=== PATIENT | female | born 1970 | race Caucasian/White ===

== ENCOUNTER 2017-02-06 08:04 | Day surgery (SDC) | payer OTHER ==
[2017-02-04 15:09] VITALS: BMI 38.2
--- NOTE | 2017-02-05 16:38 | P.HPOB ---
History of Present Illness H&P Date: 02/05/17 Chief Complaint: post menopausal bleeding 46 year old presents for D&C hysteroscopy for postmenopausal bleeding. Review of Systems All systems: negative Constitutional: Denies chills, Denies fever Eyes: denies blurred vision, denies pain Ears, nose, mouth and throat: Denies headache, Denies sore throat Cardiovascular: Denies chest pain, Denies shortness of breath Respiratory: Denies cough Gastrointestinal: Denies abdominal pain, Denies diarrhea, Denies nausea, Denies vomiting Genitourinary: Denies dysuria, Denies hematuria Musculoskeletal: Denies myalgias Integumentary: Denies pruritus, Denies rash Neurological: Denies numbness, Denies weakness Psychiatric: Denies anxiety, Denies depression Endocrine: Denies fatigue, Denies weight change Past Medical History Past Medical History: GERD/Reflux, Osteoarthritis (OA), Sleep Apnea/CPAP/BIPAP Additional Past Medical History / Comment(s): hx. migraines, no CPAP, abnormal vaginal bleeding, recent laryngitis-now resolved History of Any Multi-Drug Resistant Organisms: None Reported Past Surgical History: Section, Cholecystectomy, Orthopedic Surgery Additional Past Surgical History / Comment(s): ORIF left hand Past Anesthesia/Blood Transfusion Reactions: Previous Problems w/ Anesthesia Additional Past Anesthesia/Blood Transfusion Reaction / Comment(s): severe itching post-op after c/s Past Psychological History: No Psychological Hx Reported Smoking Status: Current every day smoker Past Alcohol Use History: None Reported Additional Past Alcohol Use History / Comment(s): 1/2ppd since age of 15 Past Drug Use History: None Reported - Past Family History Mother Family Medical History: Cancer Medications and Allergies Home Medications Medication Instructions Recorded Confirmed Type Ibuprofen [Motrin] 800 mg PO Q8HR PRN 01/10/17 02/04/17 History Loratadine [Claritin] 10 mg PO DAILY 01/10/17 02/04/17 History Ranitidine HCl [Zantac] 150 mg PO BID 01/10/17 02/04/17 History Simvastatin [Zocor] 40 mg PO HS 01/10/17 02/04/17 History Allergies Allergy/AdvReac Type Severity Reaction Status Date / Time acetaminophen Allergy Nausea Verified 02/04/17 15:04 [From Tylenol-Codeine #3] codeine Allergy "loopy" Verified 02/04/17 15:04 Exam Osteopathic Statement: *. No significant issues noted on an osteopathic structural exam other than those noted in the History and Physical/Consult. HEart: RRR Lungs: CTAB ABdomen: soft, nontender Extremeties: neg homans Assessment and Plan (1) Postmenopausal bleeding Status: Acute Plan: 1. D&C hysteroscopy
[~2017-02-06 08:04] MED LIST: DEXAMETHASONE SOD PHOSPHATE 10 MG/ML 1 ML VIAL IV ONE; HYDROmorphone 1 MG/ML 1 ML SYRINGE IVP PRN; LACTATED RINGERS 1,000 ML IV SCH; MIDAZOLAM 2 MG/2 ML VIAL IV PRN; ONDANSETRON 4 MG/2 ML VIAL IVP ONE; Pre Op ABX Message 1 EACH MISC MISCELLANE ONE; SCOPOLAMINE 1.5MG/72HR PATCH TRANSDERM ONE
[2017-02-06] MEDS ORDERED: LIDOCAINE 1% 20 ML VIAL (10MG/ML) FOR IV START INTRADERMA ONE (08:31)
[2017-02-06] MEDS ORDERED: PROPOFOL 10 MG/ML 20 ML VIAL IV ONE (09:03)
[2017-02-06] MEDS ORDERED: SUCCINYLCHOLINE CHLORIDE 100 MG/5 ML SYR IV ONE (09:03)
[2017-02-06] MEDS ORDERED: LIDOCAINE 1% INJ 10MG/ML (20 ML MDV) ONE (09:03)
--- NOTE | 2017-02-06 09:27 | P.OP ---
Date of Procedure: 02/06/17 Preoperative Diagnosis: 1. Postmenopausal bleeding Postoperative Diagnosis: 1. Postmenopausal bleeding Procedure(s) Performed: D&C, hysteroscopy Anesthesia: DASHA Surgeon: Beverly Zelaya Estimated Blood Loss (ml): 5 IV fluids (ml): 300 Urine output (ml): 50 Pathology: other Condition: stable Disposition: PACU Description of Procedure: PAtient was taken to the operating room where general anesthesia was obtained without difficulty. She was prepped and draped in the normal sterile fashion, legs placed in the candy cane stirrups. Bladder was drained of all urine. Weighted speculum placed in the vagina and the anterior lip of the cervix was grasped with a single toothed tenaculum. The uterus was sounded to 9cm. The cervix was dilated to the number 8 Hegar dilator. Hysteroscopy was performed. Both ostia visualized, there was a polyp seen on the anterior portion of the endometrium. Sharp currett was gently used to obtain endometrial currettings and then a polyp forcep was introduced and the polyp was removed. All instruments removed from vagina. Excellent hemostasis seen. Pt tolerated procedure well. Sponge and instrument counts correct x2. She was taken to recovery in stable condition.
[2017-02-06 09:39] VITALS: TEMP 97
[2017-02-06 09:52] VITALS: RESP 18
[2017-02-06 10:59] VITALS: BP 143/65; PULSE 85
== END 2017-02-06 11:02 | disposition home or self-care (01) ==
LOC: OR 08:04
PROVIDERS: ATTEND Obstetrics & Gynecology
DX: N84.0 Polyp of corpus uteri (principal); N95.0 Postmenopausal bleeding; K21.9 Gastro-esophageal reflux disease without esophagitis; M19.90 Unspecified osteoarthritis, unspecified site; E78.5 Hyperlipidemia, unspecified; G47.33 Obstructive sleep apnea (adult) (pediatric); F17.200 Nicotine dependence, unspecified, uncomplicated; Z88.5 Allergy status to narcotic agent; Z88.8 Allergy status to other drugs, medicaments and biological substances; Z79.899 Other long term (current) drug therapy
CPT/HCPCS: 58558; 81025; 88305; J1100; J2405; J2001; J0330; J2704

== ENCOUNTER 2017-03-18 10:31 | Emergency (ER) | payer OTHER ==
[2017-03-18] MEDS ORDERED: DIPH,PERTUS(ACELL)TETVAC-LF 0.5 ML VIAL IM ONE (11:03)
--- NOTE | 2017-03-18 11:06 | ED ---
Wound/Laceration HPI - General Chief Complaint: Wound/Laceration Stated Complaint: laceration Time Seen by Provider: 03/18/17 10:52 Source: patient, RN notes reviewed Mode of arrival: ambulatory Limitations: physical limitation - History of Present Illness Initial Comments: 46 yo female presents to the Er with cc of right hand laceration. Patient states that she was doing dishes today and a glass broke and cut her hand. Patient states since then she had some bleeding. Hand. Patient states she went to [facility] and she was sent here. Patient states she has full range motion hand. There is no pain. Patient states that she is not up-to-date on her tetanus. Patient states she is not currently having any other symptoms at this time. Patient denies any recent fever, chills, shortness of breath, chest pain, back pain, abdominal pain, nausea vomiting, numbness or tingling, dysuria or hematuria, constipation or diarrhea, headaches or visual changes, or any other current symptoms. - Related Data Home Medications Medication Instructions Recorded Confirmed Ibuprofen [Motrin] 800 mg PO Q8HR PRN 01/10/17 02/06/17 Loratadine [Claritin] 10 mg PO DAILY 01/10/17 02/06/17 Ranitidine HCl [Zantac] 150 mg PO BID 01/10/17 02/06/17 Simvastatin [Zocor] 40 mg PO HS 01/10/17 02/06/17 Allergies Allergy/AdvReac Type Severity Reaction Status Date / Time acetaminophen Allergy Nausea Verified 02/06/17 08:18 [From Tylenol-Codeine #3] codeine Allergy "loopy" Verified 02/06/17 08:18 Review of Systems ROS Statement: Those systems with pertinent positive or pertinent negative responses have been documented in the HPI. ROS Other: All systems not noted in ROS Statement are negative. Past Medical History Past Medical History: GERD/Reflux, Osteoarthritis (OA), Sleep Apnea/CPAP/BIPAP Additional Past Medical History / Comment(s): hx. migraines, no CPAP, abnormal vaginal bleeding, History of Any Multi-Drug Resistant Organisms: None Reported Past Surgical History: Section, Cholecystectomy, Orthopedic Surgery Additional Past Surgical History / Comment(s): ORIF left hand Past Anesthesia/Blood Transfusion Reactions: Previous Problems w/ Anesthesia Additional Past Anesthesia/Blood Transfusion Reaction / Comment(s): severe itching post-op after c/s Past Psychological History: No Psychological Hx Reported Smoking Status: Current every day smoker Past Alcohol Use History: None Reported Additional Past Alcohol Use History / Comment(s): 1/2ppd since age of 15 Past Drug Use History: None Reported - Past Family History Father Family Medical History: Cancer Mother Family Medical History: Cancer General Exam - General Exam Comments Initial Comments: General: The patient is awake and alert, in no distress, and does not appear acutely ill. Neck: The neck is supple, there is no tenderness. Cardiovascular: There is a regular rate and rhythm. No murmur, rub or gallop is appreciated. Respiratory: Lungs are clear to auscultation, respirations are non-labored, breath sounds are equal. No wheezes, stridor, rales, or rhonchi. Musculoskeletal: Sensation intact with 2+ pulses at the pressure. Front portion of the right wrist and right hand. Patient appears to have a 1 cm x 2 cm abrasion with associated mild skin avulsion to the first knuckle. There is no weakness there is no deep tendon or tissue injury noted. Patient has full range of motion. Neurological: CN II-XII intact, There are no obvious motor or sensory deficits. Coordination appears grossly intact. Speech is normal. Skin: Skin is warm and dry and no rashes or lesions are noted. Psychiatric: Normal mood and affect. Limitations: physical limitation Course Vital Signs 03/18/17 10:34 Temperature 98.3 F Pulse Rate 98 Respiratory 18 Rate Blood Pressure 155/92 O2 Sat by Pulse 98 Oximetry Medical Decision Making - Medical Decision Making 46-year-old female presents with what appears to be a right hand abrasion with mild avulsion. This time there is no suturing needed. We did discuss care follow-up return parameters. We did discuss all the patient's questions. He stated they understood and they are agreeable with the plan. They will be discharged home. Disposition Clinical Impression: Abrasion of right hand Disposition: HOME SELF-CARE Condition: Stable Instructions: Abrasion (ED) Additional Instructions: Please use medication as discussed. Please follow up with family doctor if symptoms have not improved over the next two days. Please return to the emergency room if your symptoms increase or worsen or for any other concerns. Referrals: Brian Simmons DO [Primary Care Provider] - 1-2 days Time of Disposition: 11:05
[2017-03-18 11:48] VITALS: BP 146/92; PULSE 95; RESP 16; TEMP 97.8
== END 2017-03-18 11:46 | disposition home or self-care (01) ==
LOC: EC 10:31
DX: S61.401A Unspecified open wound of right hand, initial encounter (principal); K21.9 Gastro-esophageal reflux disease without esophagitis; F17.200 Nicotine dependence, unspecified, uncomplicated; Z23 Encounter for immunization; Z79.899 Other long term (current) drug therapy; Z88.5 Allergy status to narcotic agent; Z88.6 Allergy status to analgesic agent; W25.XXXA Contact with sharp glass, initial encounter; Y93.G1 Activity, food preparation and clean up
CPT/HCPCS: 90471; 90715; 99282

== ENCOUNTER → 2017-12-26 | Outpatient (CLI) | payer OTHER ==
--- NOTE | 2017-12-27 12:07 | MM ---
Reason for exam: screening (asymptomatic). Last mammogram was performed 2 years and 1 month ago. History: Patient is postmenopausal. Family history of breast cancer in maternal grandmother at age 80. Took hormonal contraceptives for 13 years beginning at age 15. Took progesterone beginning at age 46. Physical Findings: A clinical breast exam by your physician is recommended on an annual basis and results should be correlated with mammographic findings. MG Screening Mammo w CAD Bilateral CC and MLO view(s) were taken. Prior study comparison: November 17, 2015, bilateral MG screening mammo w CAD. April 30, 2013, bilateral digital screening mammo w/CAD. The breast tissue is heterogeneously dense. This may lower the sensitivity of mammography. No suspicious abnormality. No significant changes when compared with prior studies. ASSESSMENT: Negative, BI-RAD 1 RECOMMENDATION: Routine screening mammogram of both breasts in 1 year.
== END | disposition home or self-care (01) ==
LOC: RADMAMWWP 11:09
PROVIDERS: ATTEND Family Medicine
DX: Z12.31 Encounter for screening mammogram for malignant neoplasm of breast (principal)
CPT/HCPCS: 77067

== ENCOUNTER → 2019-04-02 | Outpatient (CLI) | payer OTHER ==
--- NOTE | 2019-04-02 10:24 | XR ---
EXAMINATION TYPE: XR chest 2V DATE OF EXAM: 04/02/2019 COMPARISON: None INDICATION: Nicotine dependence TECHNIQUE: Frontal and lateral views of the chest are obtained. FINDINGS: The heart size is normal. The pulmonary vasculature is normal. The lungs are clear. IMPRESSION: 1. No acute pulmonary process. 2. Consider assessment for low dose CT chest screening.
--- NOTE | 2019-04-03 13:29 | ECHOF ---
Referral Reason:R07.9 chest pain MEASUREMENTS -------- HEIGHT: 157.5 cm WEIGHT: 86.2 kg BP: 130/88 RVIDd: 2.9 cm (< 3.3) IVSd: 1.2 cm (0.6 - 1.1) LVIDd: 3.2 cm (3.9 - 5.3) LVPWd: 1.0 cm (0.6 - 1.1) IVSs: 1.4 cm LVIDs: 2.4 cm LVPWs: 1.4 cm LA Diam: 2.8 cm (2.7 - 3.8) LAESV Index (A-L): 18.12 ml/m Ao Diam: 2.4 cm (2.0 - 3.7) AV Cusp: 1.5 cm (1.5 - 2.6) MV EXCURSION: 11.540 mm (> 18.000) MV EF SLOPE: 35 mm/s (70 - 150) EPSS: 0.3 cm MV E Christian: 0.94 m/s MV DecT: 247 ms MV A Christian: 0.99 m/s MV E/A Ratio: 0.95 AV maxP.57 mmHg AV meanP.51 mmHg FINDINGS -------- Sinus rhythm. This was a technically good study. The left ventricular size is normal. There is borderline concentric left ventricular hypertrophy. Overall left ventricular systolic function is normal with, an EF between 60 - 65 %. The right ventricle is normal in size. Normal LA size by volume 22+/-6 ml/m2. The right atrium is normal in size. The atrial septal defect shunts from left to right. There is mild aortic valve sclerosis. Peak/mean gradient across the Aortic Valve is 17.57mmHg / 7.5 1mmHg. The tricuspid valve appears structurally normal. The pulmonic valve was not well visualized. The aortic root size is normal. Normal inferior vena cava with normal inspiratory collapse consistent with estimated right atrial pre ssure of 5 mmHg. There is no pericardial effusion. CONCLUSIONS -------- 1. Sinus rhythm. 2. This was a technically good study. 3. The left ventricular size is normal. 4. There is borderline concentric left ventricular hypertrophy. 5. Overall left ventricular systolic function is normal with, an EF between 60 - 65 %. 6. The right ventricle is normal in size. 7. Normal LA size by volume 22+/-6 ml/m2. 8. The right atrium is normal in size. 9. The atrial septal defect shunts from left to right. 10. There is mild aortic valve sclerosis. 11. Peak/mean gradient across the Aortic Valve is 17.57mmHg / 7.51mmHg. 12. The tricuspid valve appears structurally normal. 13. The pulmonic valve was not well visualized. 14. The aortic root size is normal. 15. Normal inferior vena cava with normal inspiratory collapse consistent with estimated right atrial pressure of 5 mmHg. 16. There is no pericardial effusion. CAN LINE EXAMINER: Jen Haynes RDCS
--- NOTE | 2019-04-03 14:30 | EST ---
EXERCISE STRESS DATE OF SERVICE: 04/02/2019 AGE: 48 SEX: Female HT: 62" WT: 190 pounds PROTOCOL: Winston STAGE: II DURATION OF EXERCISE: 4 minutes HEART RATE REST: 94 BLOOD PRESSURE REST: 130/86 MAXIMUM HEART RATE ACHIEVED: 115 MAXIMUM BLOOD PRESSURE: 147/86 85% MPHR: 145 100% MPHR: 171 METS: 5.9 INDICATIONS: Chest pain. CLINICAL INFORMATION: STRESS DATA: Pretesting physical examination showed a heart rate of 94, pressure 130/86 mmHg. Baseline EKG showed sinus mechanism. The patient exercised on the treadmill according to [place] protocol for a total of 4 minutes and achieved 5.9 METs. Max heart rate was 115 beats per minute, which is about 69% of maximum predicted heart rate. Maximum blood pressure was 147/86 mmHg. Clinically the patient did not have any symptoms of chest pain, but she developed shortness of breath and she could not continue exercising. CONCLUSION: 1. Normal EKG in response to exercise to the level of heart rate achieved, which is 69% of maximum predicted heart rate. 2. Overall nondiagnostic stress test due to the patient not achieving 85% of maximum predicted heart rate. MMODL / IJN: [id number] /
== END | disposition home or self-care (01) ==
LOC: RADNMMAIN 08:21
PROVIDERS: ATTEND Family Medicine
DX: R07.9 Chest pain, unspecified (principal); I51.7 Cardiomegaly; I35.8 Other nonrheumatic aortic valve disorders; F17.210 Nicotine dependence, cigarettes, uncomplicated; Z88.5 Allergy status to narcotic agent
CPT/HCPCS: 71046; 93017; 93306

== ENCOUNTER → 2019-11-25 | Outpatient (CLI) | payer OTHER ==
--- NOTE | 2019-11-26 09:03 | MM ---
Reason for exam: additional evaluation requested from abnormal screening. Last mammogram was performed less than 1 month ago. History: Patient is postmenopausal. Family history of breast cancer in maternal grandmother at age 80 and breast cancer in aunt. Took hormonal contraceptives for 13 years beginning at age 15. Took progesterone beginning at age 46. Physical Findings: Nurse did not find any significant physical abnormalities on exam. MG Work Up Mamm w CAD LT Spot compression CC, spot compression MLO, and ML view(s) were taken of the left breast. Prior study comparison: November 12, 2019, bilateral MG screening mammo w CAD. December 26, 2017, bilateral MG screening mammo w CAD. The breast tissue is heterogeneously dense. This may lower the sensitivity of mammography. Finding #1: There is a 4 mm equal density (isodense), round mass in the left breast. Finding #2: There are typically benign calcifications in the left breast. These results were verbally communicated with the patient and result sheet given to the patient on 11/25/19. ASSESSMENT: Incomplete: need additional imaging evaluation, BI-RAD 0 RECOMMENDATION: Ultrasound of the left breast.
--- NOTE | 2019-11-26 09:12 | USB ---
Reason for exam: additional evaluation requested from abnormal screening. History: Patient is postmenopausal. Family history of breast cancer in maternal grandmother at age 80 and breast cancer in aunt. Took hormonal contraceptives for 13 years beginning at age 15. Took progesterone beginning at age 46. US Breast Workup Limited LT Left limited breast ultrasound including focal area of concern, retroareolar and axilla demonstrates a 0.7 x 0.6 x 0.2cm cystic lesion at 1 o'clock. These results were verbally communicated with the patient and result sheet given to the patient on 11/25/19. ASSESSMENT: Probably benign, BI-RAD 3 RECOMMENDATION: Follow-up diagnostic mammogram and ultrasound of the left breast in 6 months.
== END | disposition home or self-care (01) ==
LOC: RADMAMWWP 14:06
PROVIDERS: ATTEND Family Medicine
DX: R92.8 Other abnormal and inconclusive findings on diagnostic imaging of breast (principal)
CPT/HCPCS: 77065

== ENCOUNTER → 2020-07-04 | Outpatient (CLI) | payer OTHER ==
--- NOTE | 2020-07-04 10:31 | MM ---
Reason for exam: follow-up at short interval from prior study. Last mammogram was performed 7 months ago. History: Patient is postmenopausal. Family history of breast cancer in maternal grandmother at age 80 and breast cancer in aunt. Took hormonal contraceptives for 13 years beginning at age 15. Took progesterone beginning at age 46. Physical Findings: Nurse did not find any significant physical abnormalities on exam. MG Diagnostic Mammo LT w CAD CC, MLO, and XCCL view(s) were taken of the left breast. Prior study comparison: November 25, 2019, left breast MG work up mamm w CAD LT. November 12, 2019, bilateral MG screening mammo w CAD. The breast tissue is heterogeneously dense. This may lower the sensitivity of mammography. Finding: There is a 4 mm equal density (isodense), circumscribed oval mass in the posterior position of the left breast, present previously, increased from 2mm, 11cm from the nipple. There is a chronic nodularity in the left breast. New finding since November 25, 2019 and November 12, 2019. These results were verbally communicated with the patient and result sheet given to the patient on 07/04/20. ASSESSMENT: Incomplete: need additional imaging evaluation, BI-RAD 0 RECOMMENDATION: Ultrasound of the left breast.
--- NOTE | 2020-07-04 10:33 | USB ---
Reason for exam: additional evaluation requested from abnormal screening. History: Patient is postmenopausal. Family history of breast cancer in maternal grandmother at age 80 and breast cancer in aunt. Took hormonal contraceptives for 13 years beginning at age 15. Took progesterone beginning at age 46. US Breast LT Left complete breast ultrasound includes all four quadrants, the retroareolar region and axilla. Finding demonstrates a 8 x 5 x 11mm oval, cystic lesion at 12 o'clock and a 8 x 2 x 5mm cystic lesion at 1 o'clock. These results were verbally communicated with the patient and result sheet given to the patient on 07/04/20. ASSESSMENT: Benign, BI-RAD 2 RECOMMENDATION: Follow-up diagnostic mammogram of both breasts in 6 months.
== END | disposition home or self-care (01) ==
LOC: RADMAMWWP 09:20
PROVIDERS: ATTEND Family Medicine
DX: R92.8 Other abnormal and inconclusive findings on diagnostic imaging of breast (principal)
CPT/HCPCS: 77065

== ENCOUNTER → 2021-06-28 | Outpatient (CLI) | payer OTHER ==
--- NOTE | 2021-06-28 14:46 | MM ---
Reason for exam: additional evaluation requested from prior study. Last mammogram was performed 1 year ago. History: Patient is postmenopausal. Family history of breast cancer in maternal grandmother at age 80 and breast cancer in paternal aunt. Took hormonal contraceptives for 13 years beginning at age 15. Taking progesterone beginning at age 46. Physical Findings: Nurse did not find any significant physical abnormalities on exam. MG Diagnostic Mammo w CAD GOYO Bilateral CC, MLO, spot compression CC, and LM view(s) were taken. Prior study comparison: July 04, 2020, left breast MG diagnostic mammo LT w CAD. November 25, 2019, left breast MG work up mamm w CAD LT. November 25, 2019, left breast US breast workup limited LT. December 26, 2017, bilateral MG screening mammo w CAD. November 17, 2015, bilateral MG screening mammo w CAD. The breast tissue is heterogeneously dense. This may lower the sensitivity of mammography. There is chronic nodularity in the left breast medially. The left lateral posterior asymmetric density disperses on spot 3D. No significant new findings when compared with previous films. These results were verbally communicated with the patient and result sheet given to the patient on 06/28/21. ASSESSMENT: Benign, BI-RAD 2 RECOMMENDATION: Routine screening mammogram of both breasts in 1 year.
== END | disposition home or self-care (01) ==
LOC: RADMAMWWP 11:02
PROVIDERS: ATTEND Family Medicine
DX: R92.8 Other abnormal and inconclusive findings on diagnostic imaging of breast (principal); Z80.3 Family history of malignant neoplasm of breast
CPT/HCPCS: 77066

== ENCOUNTER → 2023-10-24 | Outpatient (CLI) | payer OTHER ==
--- NOTE | 2023-10-24 09:24 | MM ---
Reason for Exam: Additional evaluation requested from prior study. Last mammogram was performed 2 year(s) and 4 month(s) ago. Patient History: Menarche at age 10. First Full-Term at age 20. Postmenopausal. Currently using Progesterone, starting at age 46. Hormonal Contraceptives for 13 years from age 15 until age 28. Maternal grandmother had breast cancer, age 80. Paternal aunt had breast cancer. Risk Values: Dotty 5 year model risk: 1.1%. NCI Lifetime model risk: 8.2%. Prior Study Comparison: 09/23/2009 Bilateral Screening Mammogram, [facility]. 10/04/2011 Bilateral Screening Mammogram, [facility]. 04/30/2013 Bilateral Screening Mammogram, [facility]. 11/17/2015 Bilateral Screening Mammogram, [facility]. 12/26/2017 Bilateral Screening Mammogram, [facility]. 11/12/2019 Bilateral Screening Mammogram, [facility]. 11/25/2019 Left Diagnostic Mammogram, [facility]. 11/25/2019 Left Diagnostic Ultrasound, [facility]. 07/04/2020 Left Diagnostic Mammogram, [facility]. 07/04/2020 Left Diagnostic Ultrasound, [facility]. 06/28/2021 Bilateral Diagnostic Mammogram, [facility]. Tissue Density: There are scattered fibroglandular densities. Findings: Analyzed By CAD. No significant change on the right. On the left, central area of asymmetric density approximately 12:00 anterior breast becomes less pronounced on spot compression view and shows a 1.3 cm circumscribed low density mass. Previously measured 1.1 cm in 2020. A fluctuating cyst is suggested and can be reassessed at follow-up. An additional area of nodular asymmetric density lateral left breast middle depth persists and appears more defined from prior exams, approximately 1.2 cm on spot 3-D. Further ultrasound evaluation recommended. Overall Assessment: Incomplete: need additional imaging evaluation, BI-RAD 0 Management: Diagnostic Breast Ultrasound of the left breast. Upper outer quadrant. Electronically signed and approved by: Umer Wright M.D. Radiologist
--- NOTE | 2023-10-24 09:55 | USB ---
Reason for Exam: Additional evaluation requested from prior study. Patient History: Menarche at age 10. First Full-Term at age 20. Postmenopausal. Currently using Progesterone, starting at age 46. Hormonal Contraceptives for 13 years from age 15 until age 28. Maternal grandmother had breast cancer, age 80. Paternal aunt had breast cancer. Risk Values: Dotty 5 year model risk: 1.1%. NCI Lifetime model risk: 8.2%. Technique: Method: Targeted. Prior Study Comparison: 11/25/2019 Left Diagnostic Mammogram, [facility]. 11/25/2019 Left Diagnostic Ultrasound, [facility]. 07/04/2020 Left Diagnostic Mammogram, [facility]. 07/04/2020 Left Diagnostic Ultrasound, [facility]. 06/28/2021 Bilateral Diagnostic Mammogram, [facility]. Findings: The upper outer quadrant of the left breast, the axilla of the left breast and the retroareolar of the left breast were scanned. Targeted ultrasound upper outer quadrant left breast 12:00 to 3:00 including scanning of the subareolar region and axilla. At the 12:00 position, 3 cm from the nipple, there is a benign 1.2 cm cyst containing some minimal debris. Previously measured 1.1 cm. There is a tiny adjacent 3 mm cyst which is new. At the 1:00 position, 2 cm from the nipple, there is a benign 1.3 cm cyst which has increased in size from 8 mm, previously. Some internal debris is noted. At the 2:00 position, 4 cm from the nipple, some direct ectasia is noted. At the 3:00 position, 6 cm from the nipple, there is a thinly septated cyst or cyst cluster, not seen previously. Prominent but benign-appearing lymph nodes noted in the left axilla. No other solid or cystic lesion. Overall Assessment: Probably benign, BI-RAD 3 Management: Diagnostic Mammogram of the left breast in 6 months. A clinical breast exam by your physician is recommended on an annual basis and results should be correlated with mammographic findings. This exam should not preclude additional follow-up of suspicious palpable abnormalities. Results were given to the patient verbally at the time of exam. Electronically signed and approved by: Umer Wright M.D. Radiologist
== END | disposition home or self-care (01) ==
LOC: RADMAMWWP 08:41
PROVIDERS: ATTEND Family Medicine
DX: R92.323 Mammographic fibroglandular density, bilateral breasts (principal); Z78.0 Asymptomatic menopausal state; Z80.3 Family history of malignant neoplasm of breast
CPT/HCPCS: 77066; 76642; G0279; 77062

== ENCOUNTER → 2024-05-19 | Outpatient (CLI) | payer OTHER ==
--- NOTE | 2024-05-20 12:05 | MM ---
Reason for Exam: Follow-up at short interval from prior study. Last screening mammogram was performed 7 month(s) ago. Patient History: Menarche at age 10. First Full-Term at age 20. Postmenopausal. Currently using Progesterone, starting at age 46. Hormonal Contraceptives for 13 years from age 15 until age 28. Maternal grandmother had breast cancer, age 80. Paternal aunt had breast cancer. Risk Values: Dotty 5 year model risk: 1.1%. NCI Lifetime model risk: 8.2%. Prior Study Comparison: 07/04/2020 Left Diagnostic Mammogram, [facility]. 06/28/2021 Bilateral Diagnostic Mammogram, [facility]. 10/24/2023 Bilateral MG 3D diag mammo w/cad GOYO, [facility]. Tissue Density: Left: There are scattered areas of fibroglandular density. Findings: Analyzed By CAD. The pattern is stable. There is a focal asymmetry in the subareolar left breast present previously. No enlargement is evident. No suspicious groups of microcalcifications, spiculated or lobular masses, architectural distortion or other secondary signs of malignancy are mammographically apparent. Overall Assessment: Probably benign, BI-RAD 3 Management: Diagnostic Mammogram of both breasts in 6 months. Back on schedule. A negative mammogram report should not preclude additional follow up of suspicious palpable abnormalities. Patient should continue monthly self breast exam. A clinical breast exam by your physician is recommended on an annual basis and results should be correlated with mammographic findings. Note on Dotty scores and lifetime risk: 1. A Dotty score greater than 3% is considered moderate risk. If this is the case, consider specialist referral to assess eligibility for a risk reducing agent. 2. If overall lifetime risk for the development of breast cancer is 20% or higher, the patient may qualify for future screening with alternating mammogram and breast MRI. Electronically signed and approved by: Jhoan Bustos D.O. Radiologis
== END | disposition home or self-care (01) ==
LOC: RADMAMWWP 13:31
PROVIDERS: ATTEND Family Medicine
DX: R92.322 Mammographic fibroglandular density, left breast (principal); R92.8 Other abnormal and inconclusive findings on diagnostic imaging of breast; Z78.0 Asymptomatic menopausal state; Z80.3 Family history of malignant neoplasm of breast
CPT/HCPCS: 77065; G0279; 77061

== ENCOUNTER → 2024-07-22 | Outpatient (CLI) | payer OTHER ==
--- NOTE | 2024-07-22 21:28 | BD ---
EXAMINATION TYPE: Axial Bone Density DATE OF EXAM: 07/22/2024 CLINICAL HISTORY: 53 years old Female. ICD-10 CODE: Z78.0 AYSMPTOMATIC MENOPAUSAL Height: 60.2 Weight: 206 FRAX RISK QUESTIONS: Glucocorticoids (More than 3mos): yes (Ex: prednisone, prednisolone, methylprednisolone, dexamethasone, and hydrocortisone). History of Fracture in Adulthood: yes Secondary Osteoporosis: yes 3. Menopause before 45: yes at 44-45 Current Tobacco Use: yes RISK FACTORS HISTORY OF: hx of lt wrist fx...compound fx MEDICATIONS: calcium and vit d, multivitamins, antiseizure meds, hormones for menopause EXAM MEASUREMENTS: Bone mineral densitometry was performed using the [employer] System. Bone mineral density as measured about the Lumbar spine is: ----- L1-L4(G/cm2): 1.256 T Score Values are as follows: ----- L1: 1.3 ----- L2: 0.5 ----- L3: 0.9 ----- L4: -0.1 ----- L1-L4: 0.6 Z Score Values are as follows: ----- L1: 1.1 ----- L2: 0.4 ----- L3: 0.7 ----- L4: -0.2 ----- L1-L4: 0.5 Bone mineral density is her baseline study today. Bone mineral density about the R hip (g/cm2): 1.133 Bone mineral density about the L hip (g/cm2): 1.120 T Score values are as follows: -----R Neck: -0.1 -----L Neck: -1.0 -----R Total: 1.0 -----L Total: 0.9 Z Score values are as follows: -----R Neck: 0.3 -----L Neck: -0.7 -----R Total: 1.0 -----L Total: 0.9 Bone mineral density is a baseline study today. FRAX%s: The graph provided illustrates a 14.5% chance for a major osteoporotic fx and a 1.5% chance f or the hips probability for fx in 10 years time. IMPRESSION: Normal (Values between +1 and -1 indicate normal bone mass). Consider repeating this study in 5 year s or sooner if there is some new clinical indication. NOTE: T-SCORE=SD OF THE YOUNG ADULT MEAN. [facility], , 07/22/2024 9:25 PM
--- NOTE | 2024-07-25 07:49 | XR ---
EXAMINATION TYPE: XR chest 2V DATE OF EXAM: 07/22/2024 COMPARISON: 04/02/2019 INDICATION: Nicotine dependence TECHNIQUE: Frontal and lateral views of the chest are obtained. FINDINGS: The heart size is normal. The pulmonary vasculature is normal. The lungs are clear. IMPRESSION: 1. No acute pulmonary process. 2. Assess patient for screening low dose CT chest screening criteria. [facility], , 07/25/2024 7:46 AM
== END | disposition home or self-care (01) ==
LOC: RADBDWWP 14:03
PROVIDERS: ATTEND Family Medicine
DX: F17.210 Nicotine dependence, cigarettes, uncomplicated (principal); Z78.0 Asymptomatic menopausal state; M81.8 Other osteoporosis without current pathological fracture
CPT/HCPCS: 71046; 77080

== ENCOUNTER → 2025-04-19 | Outpatient (CLI) | payer OTHER ==
--- NOTE | 2025-04-19 11:30 | MM ---
Reason for Exam: Additional evaluation requested from prior study. Last mammogram was performed 1 year(s) and 6 month(s) ago. Patient History: Menarche at age 10. First Full-Term at age 20. Postmenopausal. Currently using Progesterone, starting at age 46. Hormonal Contraceptives for 13 years from age 15 until age 28. Maternal grandmother had breast cancer, age 80. Paternal aunt had breast cancer. Risk Values: Dotty 5 year model risk: 1.2%. NCI Lifetime model risk: 8.1%. Prior Study Comparison: 07/04/2020 Left Diagnostic Mammogram, [facility]. 07/04/2020 Left Diagnostic Ultrasound, [facility]. 06/28/2021 Bilateral Diagnostic Mammogram, [facility]. 10/24/2023 Left US breast limited LT, [facility]. 10/24/2023 Bilateral MG 3D diag mammo w/cad GOYO, [facility]. 05/19/2024 Left MG 3D diag mammo w/cad LT, [facility]. Tissue Density: The breasts are heterogeneously dense, which may obscure small masses. Findings: Analyzed By CAD. On the left, the subareolar focal asymmetry is unchanged. Additional asymmetric density superior posterior left MLO view is unchanged. Scattered benign round and punctate calcifications redemonstrated. No significant change from prior exams. Overall Assessment: Benign, BI-RAD 2 Management: Screening Mammogram of both breasts in 1 year. Results were given to the patient verbally at the time of exam. Patient should continue monthly self-breast exams. A clinical breast exam by your physician is recommended on an annual basis. This exam should not preclude additional follow-up of suspicious palpable abnormalities. Note on Dotty scores and lifetime risk: 1. A Dotty score greater than 3% is considered moderate risk. If this is the case, consider specialist referral to assess eligibility for a risk reducing agent. 2. If overall lifetime risk for the development of breast cancer is 20% or higher, the patient may qualify for future screening with alternating mammogram and breast MRI. [facility], , 04/19/2025 11:27 AM. Electronically signed and approved by: Umer Wright M.D. Radiologist
== END | disposition home or self-care (01) ==
LOC: RADMAMWWP 11:06
PROVIDERS: ATTEND Internal Medicine Geriatric Medicine
DX: R92.8 Other abnormal and inconclusive findings on diagnostic imaging of breast (principal); R92.333 Mammographic heterogeneous density, bilateral breasts; Z78.0 Asymptomatic menopausal state; Z80.3 Family history of malignant neoplasm of breast
CPT/HCPCS: 77066; G0279; 77062